=== PATIENT | female | born 1970 | race Caucasian/White ===

== ENCOUNTER 2019-01-28 08:29 | Day surgery (SDC) | payer MEDICAID ==
[~2019-01-28 08:29] MED LIST: SOD CHLORIDE 0.9% 1,000 ML IV
[2019-01-28] MEDS ORDERED: DIPHENHYDRAMINE 50 MG INJ IV (09:30)
[2019-01-28] MEDS ORDERED: MEPERIDINE 25 MG INJ IV (09:30)
[2019-01-28] MEDS ORDERED: ALBUTEROL 0.083% (NEB) 2.5 MG/3 ML AMP HHN (09:30)
[2019-01-28] MEDS ORDERED: HYDROmorphONE 1 MG/5 ML IV SYRINGE IV ×3 (09:30)
[2019-01-28] MEDS ORDERED: OXYCODONE/ACETAMINOPHEN (5/325) TAB PO (09:30)
[2019-01-28] MEDS ORDERED: ONDANSETRON 4 MG INJ IV (09:30)
[2019-01-28] MEDS ORDERED: morphine (1 MG/ML) 10ML SYRINGE IV ×2 (09:30)
[2019-01-28] MEDS ORDERED: FENTAnyl 50 MCG/ML VIAL IV ×2 (09:30)
[2019-01-28] MEDS ORDERED: LABETALOL HCL 20MG INJ IV (09:30)
[2019-01-28] MEDS: ACETAMINOPHEN 500 MG TAB PO (10:41)
[2019-01-28] MEDS ORDERED: CLINDAMYCIN 900 MG/D5W (PMX) 50 ML IVPB (11:10)
[2019-01-28] MEDS ORDERED: PROPOFOL 40 ML (11:10)
[2019-01-28] MEDS ORDERED: ONDANSETRON 4 MG INJ (11:11)
[2019-01-28] MEDS ORDERED: MIDAZOLAM 1 MG/ML 2 ML INJ (11:11)
[2019-01-28] MEDS ORDERED: FENTAnyl 50 MCG/ML VIAL (11:11)
[2019-01-28] MEDS ORDERED: DEXAMETHASONE 4 MG/ML 5 ML INJ (11:11)
[2019-01-28] MEDS ORDERED: PHENYLephrine (100 MCG/ML) 10ML SYG (12:20)
[2019-01-28] MEDS: BUPIVACAINE 0.5% (SDV) 30 ML INJ (12:32)
[2019-01-28] MEDS: OXYCODONE/ACETAMINOPHEN (5/325) TAB PO (13:16)
== END 2019-01-28 13:48 | disposition home or self-care (01) ==
LOC: SDS 08:29
DX: N63.0 Unspecified lump in unspecified breast (principal); Z88.0 Allergy status to penicillin
CPT/HCPCS: 19120; 88307